=== PATIENT | male | born 1940 | race Caucasian/White ===

== ENCOUNTER 2016-07-15 05:02 | Inpatient (IN) | payer MEDICARE, BC ==
[~2016-07-15 05:02] MED LIST: ALEVE220 M4 PO; MUPIROCIN22 G2 TP
[2016-07-15 06:06] LABS: INR 0.9 INR (0.9-1.1)
[2016-07-16 06:11] LABS: BASO % 0.3 % (0-2); EOS % 3.4 % (0-7); EOSINOPHIL ABSOLUTE COUNT 0.2 tho/cmm (0.0-0.7); HCT-HEMATOCRIT 37.6 % (36.0-53.5); HGB-HEMOGLOBIN 12.7 gm/dl (13.5-17.0); IMMATURE GRANULOCYTES ABSOLUTE 0.03 tho/cmm (0-0.03); IMMATURE GRANULOCYTES PERCENT 0.5 % (0-0.3); LYMPH % 19.6 % (20-45); LYMPH ABSOLUTE COUNT 1.2 tho/cmm (0.8-4.5); MCH (MEAN CORPUSCULAR HGB) 29.7 pg (28.0-32.0); MCHC MEAN CORPUSCULAR HGB CONC 33.8 % (32.0-36.0); MCV (MEAN CELL VOLUME) 88.1 fl (82.0-96.0); MEAN PLATELET VOLUME 9.5 cmc (9.4-12.4); MONO % 12.3 % (0-12); MONOCYTE ABSOLUTE COUNT 0.8 tho/cmm (0.0-1.2); NEUTROPHIL ABSOLUTE COUNT 3.9 tho/cmm (1.6-8.0); NEUTROPHIL-AUTOMATED 3.9 tho/cmm (1.6-8.0); NEUTROPHILS % 63.9 % (40-80); PLATELET COUNT 194 tho/cmm (150-450); RED BLOOD COUNT 4.27 mil/cmm (4.40-5.70); RED CELL DISTRIBUTION WIDTH 13.9 % (12.4-16.4); WHITE BLOOD COUNT 6.1 tho/cmm (4.0-10.0)
[2016-07-16] MEDS ORDERED: ASPIRIN81 M1 PO (12:41)
[2016-07-16] MEDS ORDERED: ROXICODONE5 M2 PO (12:42)
[2016-07-16] MEDS ORDERED: MOBIC7.5 M2 PO (12:42)
[2016-07-16] MEDS ORDERED: ULTRAM50 M1 PO (12:42)
[2016-07-16] MEDS ORDERED: TYLENOL325 M2 PO (12:43)
[2016-07-16] MEDS ORDERED: MIRALAX17 G2 PO (12:55)
[2016-07-16] MEDS ORDERED: DULCOLAX10 MG PR (12:56)
[2016-07-16] MEDS ORDERED: SENOKOT-S TABL1 EACH PO (12:58)
== END 2016-07-16 14:20 | DRG 470 ==
LOC: SHSB 05:02 → ORE 07:00 → PACU 09:00 → 5EA 10:45
PROVIDERS: ADMIT Orthopaedic Surgery Foot and Ankle Surgery
PROC: 0SRB02A Replacement of Left Hip Joint with Metal on Polyethylene Synthetic Substitute, Uncemented, Open Approach (ICD-10-PCS; principal; 2016-07-15)
DX: M16.12 Unilateral primary osteoarthritis, left hip (principal); K59.00 Constipation, unspecified
CPT/HCPCS: C1776; J0171; J0690; J1885; J2270; J2795